=== PATIENT | female | born 1960 | race Caucasian/White ===

== ENCOUNTER 2016-07-29 18:44 | Emergency (ER) | payer OTHER ==
[~2016-07-29] VITALS: Ht 170.2 cm; Wt 88.6 kg
[~2016-07-29 18:44] MED LIST: EFFEXOR75 MG PO; ZOCOR10 MG PO; [UNRECOGNIZED DRUG - OTHER]
[2016-07-29 18:51] VITALS: BP 127/95; TEMP 97.4
[2016-07-29] MEDS ORDERED: NORCO 325 MG-51 TAB PO (19:04)
[2016-07-29] MEDS ORDERED: BACTRIM DS 8001 TAB PO (19:04)
[2016-07-29 19:30] VITALS: PULSE 86
== END 2016-07-29 19:31 | disposition home or self-care (01) ==
LOC: COL.ER 18:44
DX: L02.416 Cutaneous abscess of left lower limb (principal)

== ENCOUNTER → 2018-04-22 | Outpatient (CLI) | payer OTHER ==
[~2018-04-22] MED LIST changes: +BACTRIM DS 8001 TAB PO; +NORCO 325 MG-51 TAB PO
== END ==
LOC: COL.RAD 12:54
DX: M79.645 Pain in left finger(s) (principal)
CPT/HCPCS: J3301; Q9967

== ENCOUNTER 2018-09-14 22:56 | Emergency (ER) | payer OTHER ==
[~2018-09-14] VITALS: Ht 172.7 cm; Wt 84.1 kg
[2018-09-14 23:02] VITALS: TEMP 97
[2018-09-14 23:13] LABS: BASO # 0.1 (0.0-0.2); BASO % 0.9 % (0.0-2.0); EOS # 0.5 (0.0-0.7); GRAN # 4.2 (1.4-6.5); GRAN % 49.8 % (42.2-75.2); HEMATOCRIT 42.9 % (37.0-47.0); HEMOGLOBIN 13.6 g/dl (12.5-16.0); LYMPH # 2.8 (1.2-3.4); LYMPH % 33.2 % (20.0-51.0); MEAN CELL VOLUME 93 fl (80.0-100.0); MEAN CORPUSCULAR HEMOGLOBIN 30 pg (27.0-31.0); MEAN CORPUSCULAR HGB CONC 32 g/dl (33.0-37.0); MEAN PLATELET VOLUME 9.6 fl (7.4-10.4); MONO # 0.8 (0.1-0.6); MONO % 8.9 % (1.7-9.3); PLATELET COUNT 252 K/mm3 (130-400); REDCELL DISTRIBUTION WIDTH-CV 13.5 % (11.5-14.5)
[2018-09-14] MEDS ORDERED: LEVOXYL0.088 MG PO (23:16)
[2018-09-14] MEDS ORDERED: AMBIEN 5MG TABLE5 MG PO (23:17)
[2018-09-14] MEDS ORDERED: ZYRTEC 10MG10 MG PO (23:17)
[2018-09-14 23:21] LABS: ALANINE AMINOTRANSFERASE 24 U/L (9-52); ALKALINE PHOSPHATASE 95 U/L (50-136); ANION GAP 6 mmol/L (7-16); AST,SGOT 22 U/L (15-37); BILIRUBIN,TOTAL 0.2 mg/dL (0.0-1.0); BLOOD UREA NITROGEN 20 mg/dL (7-17); CALCIUM 9.1 mg/dL (8.4-10.2); CARBON DIOXIDE 29 mmol/L (22-30); CHLORIDE 103 mmol/L (98-107); CREATININE, serum 0.95 mg/dL (0.52-1.25); GLUCOSE 112 mg/dL (74-106); LIPASE 206 U/L (23-300); POTASSIUM 3.8 mmol/L (3.4-5.0); SODIUM 139 mmol/L (137-145)
[2018-09-14 23:37] LABS: TROPONIN-I < 0.012 ng/mL (0.000-0.035)
[2018-09-15 03:12] VITALS: BP 113/64; PULSE 79
[2018-09-15] MEDS ORDERED: NORCO 325 MG-51 TAB PO (03:12)
[2018-09-15] MEDS ORDERED: ZOFRAN 4MG T4 MG/TAB PO (03:12)
== END 2018-09-15 03:18 | disposition home or self-care (01) ==
LOC: COL.ER 22:56
PROVIDERS: Emergency Medicine
DX: K80.80 Other cholelithiasis without obstruction (principal); F32.9 Major depressive disorder, single episode, unspecified; E78.5 Hyperlipidemia, unspecified; F41.9 Anxiety disorder, unspecified; F17.210 Nicotine dependence, cigarettes, uncomplicated; Z88.0 Allergy status to penicillin; Z98.51 Tubal ligation status
CPT/HCPCS: J2270; J2405; J7030; Q9967

== ENCOUNTER → 2018-11-08 | Outpatient (CLI) | payer OTHER ==
[~2018-11-08] MED LIST changes: +AMBIEN 5MG TABLE5 MG PO; +LEVOXYL0.088 MG PO; +ZOFRAN 4MG T4 MG/TAB PO; +ZYRTEC 10MG10 MG PO
== END ==
LOC: COL.RAD 09:43
DX: M79.645 Pain in left finger(s) (principal)
CPT/HCPCS: J3301; Q9967

== ENCOUNTER → 2019-04-17 | Outpatient (CLI) | payer OTHER | LOC: COL.LAB 12:20 | DX: Z20.818 Contact with and (suspected) exposure to other bacterial communicable diseases (principal) ==

== ENCOUNTER 2019-12-26 15:45 | Outpatient (RCR) | payer OTHER | END 2020-01-04 | disposition home or self-care (01) | LOC: WSOT | DX: Z96.692 Finger-joint replacement of left hand (principal) ==

== ENCOUNTER → 2020-06-23 | Outpatient (CLI) | payer OTHER | LOC: COL.RAD 07:27 | DX: M54.5 Low back pain (principal); M79.652 Pain in left thigh; R20.2 Paresthesia of skin ==

== ENCOUNTER → 2020-07-15 | Outpatient (CLI) | payer OTHER | LOC: COL.VAS 13:51 | DX: R20.2 Paresthesia of skin (principal); M79.662 Pain in left lower leg; M79.661 Pain in right lower leg ==

== ENCOUNTER → 2020-07-21 | Outpatient (CLI) | payer OTHER | LOC: COL.RAD 07:57 | DX: I74.09 Other arterial embolism and thrombosis of abdominal aorta (principal); Z90.49 Acquired absence of other specified parts of digestive tract | CPT/HCPCS: Q9967 ==

== ENCOUNTER → 2021-11-15 | Outpatient (CLI) | payer BC | LOC: MC.RAD 11-02 13:30 | DX: Z12.31 Encounter for screening mammogram for malignant neoplasm of breast (principal) ==

== ENCOUNTER → 2024-01-10 | Outpatient (CLI) | payer MEDICARE, OTHER | LOC: MC.RAD 12-13 16:30 | DX: Z12.31 Encounter for screening mammogram for malignant neoplasm of breast (principal) ==